=== PATIENT | female | born 1995 | race American Indian/Alaskan Native ===

== ENCOUNTER 2020-04-16 18:05 | Emergency (ER) | payer MEDICAID, OTHER ==
--- NOTE | 2020-04-16 18:43 | EDM.PDOC ---
ED HPI GENERAL MEDICAL PROBLEM - General Chief Complaint: Skin Complaint Stated Complaint: BITE/BOIL ON LEFT LEG Time Seen by Provider: 04/16/20 18:07 Source of Information: Reports: Patient History Limitations: Reports: No Limitations - History of Present Illness INITIAL COMMENTS - FREE TEXT/NARRATIVE: 24 yo presents with a red spot on her leg. Initially was mildly tender but now after repeatedly squeezing the area it is very tender and swollen. generally healthy no other complaints Left Leg Pain Score (Numeric/FACES): 4 - Related Data Allergies Allergy/AdvReac Type Severity Reaction Status Date / Time No Known Allergies Allergy Verified 04/16/20 18:19 Home Meds: Home Meds NK [No Known Home Meds] 04/16/20 [History] Past Medical History - Past Health History Medical/Surgical History: Denies Medical/Surgical History Respiratory History: Reports: Asthma MID WIFE History: Reports: - Infectious Disease History Infectious Disease History: Reports: Chicken Pox Social & Family History - Tobacco Use Smoking Status *Q: Current Every Day Smoker Years of Tobacco use: 8 Packs/Tins Daily: 0.5 Used Tobacco, but Quit: No Second Hand Smoke Exposure: Yes - Caffeine Use Caffeine Use: Reports: Soda - Alcohol Use Days Per Week of Alcohol Use: 0 - Recreational Drug Use Recreational Drug Use: Yes Drug Use in Last 12 Months: Yes Recreational Drug Type: Reports: Marijuana/Hashish Recreational Drug Use Frequency: Daily ED ROS GENERAL - Review of Systems Review Of Systems: See Below Constitutional: Denies: Fever Respiratory: Denies: Shortness of Breath, Wheezing Cardiovascular: Denies: Chest Pain ED EXAM, SKIN/RASH Exam: See Below Text/Narrative:: exam limited to skin of left upper leg. Exam Limited By: No Limitations General Appearance: Alert Skin: Warm, Dry, Intact, Other (left anterior upper leg 3 cm indurated area without flucuance tender to palpate. ) Course - Vital Signs Last Recorded V/S: Last Vital Signs Temp 36.2 C 04/16/20 18:25 Pulse 89 04/16/20 18:25 Resp 13 04/16/20 18:25 BP 136/82 04/16/20 18:25 Pulse Ox 98 04/16/20 18:25 Departure - Departure Time of Disposition: 18:41 Disposition: Home, Self-Care 01 Condition: Good Clinical Impression: Acne comedone - Discharge Information *PRESCRIPTION DRUG MONITORING PROGRAM REVIEWED*: Not Applicable *COPY OF PRESCRIPTION DRUG MONITORING REPORT IN PATIENT RAIN: Not Applicable Instructions: Acne, [id number] Referrals: PCP,None [Primary Care Provider] - Forms: ED Department Discharge Additional Instructions: ice pack may use topical antibiotic cream stop squeezing Sepsis Event Note (ED) - Evaluation Sepsis Screening Result: No Definite Risk - Focused Exam Vital Signs: Vital Signs Temp Pulse Resp BP Pulse Ox 04/16/20 18:25 36.2 C 89 13 136/82 98 04/16/20 18:15 36.2 C 89 13 136/82 98
== END 2020-04-16 18:51 | disposition home or self-care (01) ==
LOC: JP.ED 18:05
DX: L70.0 Acne vulgaris (principal); J45.909 Unspecified asthma, uncomplicated; F17.210 Nicotine dependence, cigarettes, uncomplicated
CPT/HCPCS: 99282